=== PATIENT | male | born 1950 | race Caucasian/White ===

== ENCOUNTER 2020-06-30 20:20 | Emergency (ER) | payer MEDICARE, OTHER, SELFPAY ==
[2020-06-30 20:25] VITALS: BP 175/89; PULSE 60; RESP 14; TEMP 36.5; O2SAT 100; BMI 31.0
--- NOTE | 2020-06-30 21:19 | ED_ITS ---
HPI - Eye Problem General Chief complaint: Eye Problems Stated complaint: LEFT EYE INJURY RANNED INTO A BRUSH Time Seen by Provider: 06/30/20 20:24 Source: patient Mode of arrival: Ambulatory Limitations: no limitations History of Present Illness HPI Narrative: 69-year-old male nonsmoker with history of hypertension and hyperlipidemia presents with a chief complaint of an accidental injury to his left eye suffered earlier while walking. He states that he accidentally scratched his left eye with a branch in now feels like there is something in his eye. He denies any vision change such as blurring or decreased vision. He does not wear contacts. He is otherwise well and free of complaint. He flushed his left eye significantly prior to coming to see us. He will need an updated tetanus MD chief complaint: eye pain, eye injury and foreign body Onset (ago): hour(s) Onset description: sudden Duration: constant Location: left eye Eye Symptoms: foreign body sensation Place: street/outdoors Mechanism: direct trauma Severity: mild If Pain, Quality: sharp and burning Associated symptoms: none Treatments Prior to Arrival: irrigated eye Related Data Patient tetanus UTD: No Home Medications Medication Instructions Recorded Confirmed CA PANTOTHENATE/FOLIC ACID/VIT 1 tab PO QDAY #0 10/09/10 (MULTIVITAMIN) Fish Oil 1,000 mg PO Q DAY #0 10/09/10 aspirin 81 mg PO QDAY #0 09/10/16 Previous Rx's Medication Instructions Recorded pneumococcal 23-carlos ps vaccine 0.5 ml IM X1 #1 dose 09/10/16 [Pneumovax-23] Allergies Allergy/AdvReac Type Severity Reaction Status Date / Time No Known Drug Allergies Allergy Verified 06/30/20 20:25 Review of Systems Constitutional Constitutional: Denies chills, Denies fatigue, Denies fever(s), Denies frequent falls, Denies lethargy and Denies weakness Eyes Eyes: Denies change in vision, Denies eye discharge, Reports irritation, Denies loss of vision and Reports eye pain ENT Ears, Nose, Mouth, and Throat: Denies change in voice, Denies dizziness, Denies neck pain, Denies sore throat and Denies throat swelling Cardiovascular Cardiovascular: Denies chest pain, Denies irregular heart rhythm, Denies lightheadedness, Denies palpitations, Denies dyspnea, Denies dyspnea on exertion and Denies orthopnea Respiratory Respiratory: Denies cough, Denies dyspnea, Denies dyspnea on exertion and Denies wheezing Gastrointestinal Gastrointestinal: Denies abdominal pain, Denies change in bowel habits, Denies diarrhea, Denies nausea and Denies vomiting Musculoskeletal Musculoskeletal: Denies neck pain and Denies numbness Integumentary/Breasts Skin/Breast: Denies pruritus, Denies erythema, Denies rash and Denies wounds Neurologic Neurologic: Denies behavioral changes, Denies confusion, Denies dizziness, Denies frequent falls, Denies loss of vision, Denies numbness and Denies weakness Psychiatric Psychiatric: Denies anxiety, Denies behavioral changes, Denies confusion, Denies depression, Denies homicidal ideation and Denies suicidal ideation Endocrine Endocrine: Denies fatigue, Denies flushing and Denies palpitations Hematologic/Lymphatic Hematologic/Lymphatic: Denies easy bruising Allergic/Immunologic Allergic/Immunologic: Denies urticaria, Denies throat swelling and Denies wheezing Patient History Family History Father Hypertension Mother Age: 96 Hypertension Social History Smoking Status: Unknown if ever smoked Smoking Status: Unknown if ever smoked alcohol intake frequency: holidays/special occasions only Substance Use Type: does not use Exam Narrative Exam Narrative: GEN: AOx3 and in mild distress EYES: Pupils are equal, round, and reactive to light and accommodation. Extraoc cular muscles are intact bilaterally. Mild injection of L eye. No FB noted. Upper lid everted. 100% symptoms improvement with 1 drop of proparacaine. Use with fluorescein under UV lamp notes corneal abrasion just inferior to the pupil, overlying the iris at the 4 o'clock position CHEST: Lungs are clear to auscultation bilaterally and free of wheezes, rales, or rhonchi. Heart rate is regular rhythm, there are no murmurs, clicks, rubs, or gallops. There is no chest wall tenderness. ABD: Abdomen is soft and nontender. There is no guarding or rebound. Bowel sounds are normal in all 4 quadrants. There is no mass or organomegaly. EXT: Full painless ROM of all extremities with no loss of sensation or strength. SKIN: Warm, pink, and dry. No erythema or rash Initial Vital Signs Initial Vital Signs: Vital Signs Temperature 97.7 F 03/19/21 20:25 Pulse Rate 60 06/30/20 20:25 Respiratory Rate 14 06/30/20 20:25 Blood Pressure 175/89 H 06/30/20 20:25 Pulse Oximetry 100 06/30/20 20:25 Course Orders Ordered: Discontinued Medications Diphtheria/Tetanus/Acell Pertussis (Tet,Diph,Pertuss(Acell),Vac/Pf 0.5 Ml Syringe) 0.5 ml IM .ONCE ONE Stop: 06/30/20 21:20 Last Admin: 06/30/20 21:27 Dose: 0.5 ml Documented by: JEVON Fluorescein Sodium (Fluorescein 1 Mg Strip) 1 mg EYE-LEFT NOW ONE Stop: 06/30/20 21:20 Last Admin: 06/30/20 21:28 Dose: 1 mg Documented by: JEVON Proparacaine HCl (Proparacaine 0.5% Ophth Komal) 1 drops EYE-LEFT NOW ONE Stop: 06/30/20 21:20 Last Admin: 06/30/20 21:27 Dose: 1 drop Documented by: JEVON Sulfacetamide (Sulfacetamide 10% Ophth Prepack) 1 bottle MISC SEEINSTR ONE Stop: 06/30/20 22:54 Last Admin: 06/30/20 22:58 Dose: 1 bottle Documented by: CHRISSY Vital Signs Vital signs: Vital Signs - 8 hr 06/30/20 20:25 06/30/20 21:20 06/30/20 22:59 Temperature 97.7 F Pulse Rate 60 61 73 Respiratory Rate 14 16 22 Blood Pressure 175/89 H 177/93 H 145/80 H Pulse Oximetry 100 97 96 Discharge Plan Departure Patient Disposition: Home Clinical Impression: Corneal abrasion Instructions: DI for Corneal Abrasion Activity Restrictions/Additional Instructions: *You have been diagnosed with [left eye corneal abrasion] *What to do: *Take medications as directed: You may use 1 drop of the proparacaine (numbing medication) in your left eye every 30-60 minutes as needed. Please use 1-2 drops of the antibiotic drop (sulfacetamide) every 2 hours while awake until your better *Follow up with your primary care provider in 2-3 days, call for an appointment. Let them know you were seen in the Emergency Department and that we ask that you be seen in follow up. Of also given you contact information for the Ophthalmology group your the hospital for follow-up if needed *Return to ER if you should have any new, worsening or concerning symptoms, such as [blurring of vision, increasing pain, drainage, or other bothersome symptoms] Prescriptions: No Action CA PANTOTHENATE/FOLIC ACID/VIT (MULTIVITAMIN) 1 tab PO QDAY Qty: 0 RF: 0 Fish Oil 1,000 mg PO Q DAY Qty: 0 RF: 0 aspirin 81 MG tablet,chewable 81 mg PO QDAY Qty: 0 RF: 0 pneumococcal 23-carlos ps vaccine [Pneumovax-23] 25 MCG/0.5 ML solution 0.5 ml IM X1 Qty: 1 RF: 0 Referrals: Bari Jovel MD [Physician] - Kareem Elizondo MD [Primary Care Provider] -
[2020-06-30 21:20] VITALS: BP 177/93; PULSE 61; RESP 16; O2SAT 97
[2020-06-30] MEDS: TET,DIPH,PERTUSS(ACELL),VAC/PF 0.5 ML SYRINGE IM (21:27)
[2020-06-30] MEDS: PROPARACAINE 0.5% OPHTH SOL 1 DROPS EYE-LEFT (21:27)
[2020-06-30] MEDS: FLUORESCEIN 1 MG STRIP EYE-LEFT (21:28)
[2020-06-30] MEDS: SULFACETAMIDE 10% OPHTH PREPACK 1 BOTTLE MISC (22:58)
[2020-06-30 22:59] VITALS: BP 145/80; PULSE 73; RESP 22; O2SAT 96
== END 2020-06-30 23:04 | disposition home or self-care (01) ==
PROVIDERS: Emergency Provider Emergency Medicine; Family Provider Family Medicine; PCP Family Medicine
DX: S05.02XA Injury of conjunctiva and corneal abrasion without foreign body, left eye, initial encounter (principal); Z23 Encounter for immunization
CPT/HCPCS: 90471; 99283; 90715

== ENCOUNTER → 2022-02-28 09:13 | Outpatient (CLI) | payer MEDICARE, OTHER, SELFPAY ==
--- NOTE | 2022-02-28 | DI.ECHO.S_ITS ---
[facility] +---------+ : : [address] : : : : [id number] : : : : Phone: [phone]+ Echocardiogram Report + + :Name: KAYCE WASHINGTON Study Date: 02/28/2022 Height: 69.5 in: :[facility] ReadingLocation: Weight: 211 lb : : Gender: Male BSA: 2.1 m2 : :: 1950 Age: 71 yrs BP: 143/85 mmHg: :Reason For Study: CARDIAC MURMUR : :Ordering Physician: Maggie CABALLEROformed By: Yeimy Serna : :Referring: EMERALD CABALLERO E : + + Interpretation Summary The left ventricle is normal in size and wall thickness. Left ventricular systolic function appears normal without focal wall motion abnormalities. The ejection fraction is estimated to be 60-65%. Diastolic parameters suggest probable normal left ventricular diastolic function and normal filling pressures. The right ventricle is normal in size and function. The right ventricular systolic pressure is estimated to be at least 33 mmHg based on an estimated right atrial pressure of 3 mm Hg. The left atrium is moderately dilated. The right atrium is normal in size. There is no significant valvular heart disease. The aortic root is normal size. Procedure: A two-dimensional transthoracic echocardiogram with color flow and Doppler was performed. The study quality was technically adequate. There is no prior echocardiogram noted for this patient. The patient was in sinus rhythm with heart rates between 58-75 bpm during the exam. Left Ventricle: The left ventricle is normal in size and wall thickness. Left ventricular systolic function appears normal without focal wall motion abnormalities. The ejection fraction is estimated to be 60-65%. Diastolic parameters suggest probable normal left ventricular diastolic function and normal filling pressures. Right Ventricle: The right ventricle is normal in size and function. Atria: The left atrium is moderately dilated. The right atrium is normal in size. There is no Doppler evidence for an interatrial shunt. Mitral Valve: The mitral valve is normal in structure and function. The mitral valve leaflets appear mildly thickened, but open well. There is trace mitral regurgitation. Aortic Valve: The aortic valve is trileaflet. The aortic valve is slightly calcified. There is mild aortic valve sclerosis. The aortic valve opens well. There is no aortic valve stenosis. No aortic regurgitation is present. Tricuspid Valve: The tricuspid valve is normal in structure and function. There is mild tricuspid regurgitation. The right ventricular systolic pressure is estimated to be at least 33 mmHg based on an estimated right atrial pressure of 3 mm Hg. Pulmonic Valve: The pulmonic valve leaflets are thin and pliable; valve motion is normal. There is no pulmonic valvular regurgitation. There is no significant valvular heart disease. Great Vessels: The aortic root is normal size. The dimensions of the ascending aorta are normal. The IVC is of normal diameter and collapses greater than 50% with a sniff. This suggests a low right atrial pressure of 3 mm Hg. Pericardium/ Pleura There is no pericardial effusion. There is no pleural effusion. MMode/2D Measurements & Calculations LVIDd: 5.1 cm LVOT diam: 2.1 cm LVIDs: 3.4 cm Ao root diam: 3.0 cm FS: 32.3 % asc Aorta Diam: 3.3 cm EPSS: 1.1 cm Ao Arch Diam (Prox Trans): 2.8 cm IVSd: 0.85 cm LVPWd: 1.0 cm LV hagen. diameter/BSA (cm/m^2): 2.4 LV sys. diameter/BSA (cm/m^2): 1.6 LA A2 area: 25.3 cm2 RA long axis: 6.4 cm LA A4 area: 28.2 cm2 RA area: 19.9 cm2 LA length (vol): 6.6 cm RA vol: 52.3 ml LA vol: 91.6 ml RA : 24.6 ml/m2 LA vol index: 43.1 ml/m2 IVC diam: 1.4 cm RVD1 (basal): 3.6 cm RVD2 (mid): 3.1 cm TAPSE: 2.4 cm Doppler Measurements & Calculations Ao V2 max: 202.5 cm/sec LVOT Max Catalino: 122.9 cm/sec Ao V2 mean: 139.1 cm/sec LV V1 max P.0 mmHg Ao max P.4 mmHg LV V1 VTI: 27.3 cm Ao mean P.8 mmHg GUS(I,D): 2.3 cm2 Ao V2 VTI: 43.4 cm GUS(V,D): 2.2 cm2 sev ratio: 0.63 GUS indexed to BSA (cm^2/m^2): 1.1 MV E max catalino: 99.9 cm/sec TR max catalino: 274.6 cm/sec MV A max catalino: 99.9 cm/sec TR max P.2 mmHg MV E/A: 1.0 PA V2 max: 110.3 cm/sec Med Peak E' Catalino: 8.1 cm/sec PA V2 mean: 73.7 cm/sec E/E' med: 12.3 PA mean P.6 mmHg Lat Peak E' Catalino: 9.7 cm/sec PA pr(Accel): 32.8 mmHg E/E' lat: 10.3 E/e' average: 11.3 MV dec time: 0.29 sec MVA(VTI): 2.6 cm2 MV V2 mean: 66.9 cm/sec SV(LVOT): 98.4 ml MV mean P.1 mmHg MV V2 VTI: 38.4 cm Reading Physician:06:03 PM
== END ==
PROVIDERS: Family Provider Family Medicine; PCP Family Medicine; Referring Provider Family Medicine; Visit Provider Family Medicine
DX: I08.2 Rheumatic disorders of both aortic and tricuspid valves (principal); R01.1 Cardiac murmur, unspecified
CPT/HCPCS: 93306